=== PATIENT | male | born 1995 | race Caucasian/White ===

== ENCOUNTER 2017-10-01 13:19 | Emergency (ER) | payer SELFPAY ==
[~2017-10-01] VITALS: Ht 167.6 cm; Wt 66.0 kg
[2017-10-01] MEDS ORDERED: IBUPROFEN 600MG TABLET PO ONE (16:45)
[2017-10-01 16:50] VITALS: BP 169/95
== END 2017-10-01 17:28 | disposition home or self-care (01) ==
LOC: ER 13:57
DX: S70.01XA Contusion of right hip, initial encounter (principal); S60.041A Contusion of right ring finger without damage to nail, initial encounter; W01.0XXA Fall on same level from slipping, tripping and stumbling without subsequent striking against object, initial encounter; Y93.89 Activity, other specified; Y92.89 Other specified places as the place of occurrence of the external cause; F12.90 Cannabis use, unspecified, uncomplicated
CPT/HCPCS: 73140; 73502; 99284

== ENCOUNTER 2018-07-04 14:39 | Emergency (ER) | payer SELFPAY ==
[~2018-07-04] VITALS: Ht 172.7 cm; Wt 63.0 kg
[2018-07-04] MEDS ORDERED: LIDOCAINE HCL/PF 1% 10 MG/ML 5ML VIAL IJ ONE (16:15)
[2018-07-04] MEDS ORDERED: HYDROCODONE/ACETAMINOPHEN 5/325MG TABLET PO ONE (16:15)
[2018-07-04] MEDS ORDERED: BACITRACIN ZINC OINT UDPKT TOP ONE (16:15)
[2018-07-04] MEDS ORDERED: CEFAZOLIN SODIUM 1000MG/VIAL IM ONE (17:15)
[2018-07-04 18:32] VITALS: BP 137/82
== END 2018-07-04 18:34 | disposition home or self-care (01) ==
LOC: ER 14:39
DX: S81.812A Laceration without foreign body, left lower leg, initial encounter (principal); W01.198A Fall on same level from slipping, tripping and stumbling with subsequent striking against other object, initial encounter; Y93.89 Activity, other specified; Y92.89 Other specified places as the place of occurrence of the external cause
CPT/HCPCS: 12002; 73590; 96372; 99284; J0690; J3490

== ENCOUNTER 2019-06-09 11:25 | Emergency (ER) | payer OTHER | END 2019-06-09 11:41 | disposition left against medical advice (07) | LOC: ER 11:25 | DX: Z53.21 Procedure and treatment not carried out due to patient leaving prior to being seen by health care provider (principal) ==

== ENCOUNTER 2019-06-10 19:28 | Emergency (ER) | payer OTHER ==
[~2019-06-10] VITALS: Ht 170.2 cm; Wt 68.5 kg
[2019-06-10] MEDS ORDERED: BACITRACIN ZINC OINT UDPKT TOP ONE (21:15)
[2019-06-10] MEDS ORDERED: BACITRACIN 15GM TUBE TOP ONE (21:30)
[2019-06-10 21:51] VITALS: BP 128/77
== END 2019-06-10 21:53 | disposition home or self-care (01) ==
LOC: ER 19:28
DX: S61.212A Laceration without foreign body of right middle finger without damage to nail, initial encounter (principal); W26.8XXA Contact with other sharp object(s), not elsewhere classified, initial encounter; Y93.89 Activity, other specified; Y92.89 Other specified places as the place of occurrence of the external cause; Y99.8 Other external cause status; F17.200 Nicotine dependence, unspecified, uncomplicated
CPT/HCPCS: 99283

== ENCOUNTER 2019-12-04 09:27 | Inpatient (IN) | payer BC, OTHER ==
[~2019-12-04] VITALS: Ht 167.6 cm; Wt 63.5 kg
[2019-12-04 11:04] LABS: BASOPHILS % 0.2 % (0.0-2.0); EOSINOPHILS % 1.2 % (0.0-5.0); HEMATOCRIT. 42.4 % (42.0-52.0); HEMOGLOBIN. 15.1 g/dL (14.0-18.0); LYMPHOCYTES % 11.1 % (20.0-50.0); MEAN CORPUSCULAR HEMOGLOBIN 31.5 pg (28.0-32.0); MEAN CORPUSCULAR VOLUME 88.3 fL (80.0-94.0); MONOCYTES % 8.4 % (2.0-8.0); NEUTROPHILS % 79.1 % (40.0-76.0); PLATELET 239 x1000/uL (130-400); RED CELL DISTRIBUTION WIDTH 12.5 % (11.6-14.6)
[2019-12-04 11:10] LABS: CHLORIDE 106 mEq/L (98-107)
[2019-12-04 11:18] LABS: T4 FREE 4.25 ng/dL (0.76-1.46)
[2019-12-04] MEDS ORDERED: SODIUM CHLORIDE 0.9% 1,000 ML IV ONE (12:59)
[2019-12-04] MEDS ORDERED: METOPROLOL TARTRATE 25MG TABLET PO ONE (13:45)
[2019-12-04] MEDS ORDERED: METOPROLOL TARTRATE 5MG/5ML VIAL IV ONE (13:45)
[2019-12-04] MEDS: METHIMAZOLE 5MG TABLET PO SCH (14:44)
[2019-12-04 23:00] VITALS: BP 121/71
[2019-12-04] MEDS ORDERED: ACETAMINOPHEN 325MG TABLET PO PRN (23:00)
[2019-12-04] MEDS ORDERED: HYDROCODONE/ACETAMINOPHEN 5/325MG TABLET PO PRN (23:00)
[2019-12-05] VITALS: BP 130/70
[2019-12-05 04:00] VITALS: BP 109/53
[2019-12-05] MEDS: PANTOPRAZOLE 40MG DR TABLET PO SCH ×2 (05:52→08:12)
[2019-12-05] MEDS: METHIMAZOLE 5MG TABLET PO SCH (08:12)
[2019-12-05] MEDS ORDERED: METOPROLOL TARTRATE 50MG TABLET PO SCH (09:00)
[2019-12-05] MEDS ORDERED: ENOXAPARIN 40MG/0.4ML SYR SUBCUT SCH (09:00)
[2019-12-05 12:00] VITALS: BP 122/60
[2019-12-05 16:18] LABS: INR 1.1; PROTHROMBIN TIME 11.5 sec (9.6-11.0)
[2019-12-05 18:51] VITALS: BP 118/52
[2019-12-05 18:58] LABS: CLARITY URINE CLEAR (CLEAR); COLOR URINE YELLOW (YELLOW); KETONES URINE 3+ (NEGATIVE); LEUKOCYTE ESTERASE URINE NEGATIVE (NEGATIVE); NITRITE URINE NEGATIVE (NEGATIVE); OCCULT BLOOD URINE NEGATIVE (NEGATIVE); PROTEIN URINE NEGATIVE (NEGATIVE); SPECIFIC GRAVITY URINE 1.019 (1.005-1.030); UROBILINOGEN URINE 0.2 E.U./dL (0.2-1.0)
[2019-12-05 19:15] LABS: *AMPHETAMINES SCREEN URINE NEGATIVE (NEGATIVE); *BARBITURATES SCREEN URINE NEGATIVE (NEGATIVE)
[2019-12-05 19:16] LABS: *BENZODIAZEPINES SCREEN URINE NEGATIVE (NEGATIVE); *COCAINE SCREEN URINE NEGATIVE (NEGATIVE); CANNABINOID URINE SCREEN PRESUMTIVE POSITIVE (NEGATIVE); METHADONE URINE SCREEN NEGATIVE (NEGATIVE); OPIATES URINE SCREEN PRESUMTIVE POSITIVE (NEGATIVE); PHENCYCLIDINE URINE SCREEN NEGATIVE (NEGATIVE)
== END 2019-12-05 19:30 | disposition home or self-care (01) | DRG 392 ==
LOC: ER 09:27 → EDBEDREQ 16:49 → 5WST 18:49 → ENRESERV 21:07 → CANRESERV 21:07 → ENRESERV 21:47
PROVIDERS: ADMIT Internal Medicine; ATTEND Internal Medicine
DX: R10.9 Unspecified abdominal pain (principal); R11.2 Nausea with vomiting, unspecified; R00.2 Palpitations; E06.9 Thyroiditis, unspecified; F12.90 Cannabis use, unspecified, uncomplicated; K76.0 Fatty (change of) liver, not elsewhere classified; R91.1 Solitary pulmonary nodule; E04.2 Nontoxic multinodular goiter; F41.9 Anxiety disorder, unspecified; E32.8 Other diseases of thymus
CPT/HCPCS: 36415; 71275; 76536; 76700; 80053; 80305; 81003; 84439; 84443; 84481; 85025; 99291; J1650; J3490; J7030

== ENCOUNTER 2021-06-20 11:32 | Emergency (ER) | payer MEDICAID ==
[~2021-06-20] VITALS: Ht 165.1 cm; Wt 75.0 kg
[2021-06-20 11:51] VITALS: BP 162/106
[2021-06-20] MEDS ORDERED: ALPRAZOLAM 0.5 MG TABLET PO ONE (12:30)
== END 2021-06-20 13:16 | disposition left against medical advice (07) ==
LOC: ER 11:32
DX: F41.0 Panic disorder [episodic paroxysmal anxiety] (principal); R00.0 Tachycardia, unspecified; R03.0 Elevated blood-pressure reading, without diagnosis of hypertension; F43.0 Acute stress reaction; Z56.3 Stressful work schedule
CPT/HCPCS: 99281

== ENCOUNTER 2021-08-09 22:56 | Emergency (ER) | payer MEDICAID ==
[~2021-08-09] VITALS: Ht 170.2 cm; Wt 62.0 kg
[2021-08-10 00:18] LABS: BASOPHILS % 0.5 % (0.0-2.0); EOSINOPHILS % 0.6 % (0.0-5.0); HEMATOCRIT. 43.7 % (42.0-52.0); HEMOGLOBIN. 15.1 g/dL (14.0-18.0); LYMPHOCYTES % 67.1 % (20.0-50.0); MEAN CORPUSCULAR HEMOGLOBIN 29.6 pg (28.0-32.0); MEAN CORPUSCULAR VOLUME 85.6 fL (80.0-94.0); MEAN PLATELET VOLUME 9.1 fl (7.4-10.4); MONOCYTES % 12.4 % (2.0-8.0); NEUTROPHILS % 19.4 % (40.0-76.0); PLATELET 152 x1000/uL (130-400); RED BLOOD CELL COUNT 5.11 mill/uL (4.7-6.1); RED CELL DISTRIBUTION WIDTH 12.7 % (11.6-14.6)
[2021-08-10 00:25] LABS: CHLORIDE 107 mEq/L (98-107)
[2021-08-10 01:06] LABS: CLARITY URINE CLEAR (CLEAR); COLOR URINE YELLOW (YELLOW); KETONES URINE NEGATIVE (NEGATIVE); LEUKOCYTE ESTERASE URINE NEGATIVE (NEGATIVE); NITRITE URINE NEGATIVE (NEGATIVE); OCCULT BLOOD URINE NEGATIVE (NEGATIVE); PH URINE 6.5 (4.5-8.0); PROTEIN URINE NEGATIVE (NEGATIVE); SPECIFIC GRAVITY URINE 1.004 (1.005-1.030); UROBILINOGEN URINE 0.2 E.U./dL (0.2-1.0)
[2021-08-10 01:18] LABS: METHADONE URINE SCREEN NEGATIVE (NEGATIVE)
[2021-08-10 01:19] LABS: *AMPHETAMINES SCREEN URINE NEGATIVE (NEGATIVE); *BARBITURATES SCREEN URINE NEGATIVE (NEGATIVE); *BENZODIAZEPINES SCREEN URINE NEGATIVE (NEGATIVE); *COCAINE SCREEN URINE NEGATIVE (NEGATIVE); CANNABINOID URINE SCREEN NEGATIVE (NEGATIVE); OPIATES URINE SCREEN NEGATIVE (NEGATIVE); PHENCYCLIDINE URINE SCREEN NEGATIVE (NEGATIVE)
[2021-08-10 02:00] VITALS: BP 110/71
== END 2021-08-10 02:10 | disposition home or self-care (01) ==
LOC: ER 23:22
DX: R07.89 Other chest pain (principal); I10 Essential (primary) hypertension
CPT/HCPCS: 36415; 71045; 80053; 80305; 81003; 83880; 85025; 93005; 99285

== ENCOUNTER 2022-01-20 00:59 | Emergency (ER) | payer MEDICAID ==
[~2022-01-20] VITALS: Ht 170.2 cm; Wt 71.5 kg
[2022-01-20 01:25] VITALS: BP 110/68
[2022-01-20] MEDS ORDERED: FLUORESCEIN SODIUM 1MG/STRIP BOTHEYE ONE (01:45)
[2022-01-20] MEDS ORDERED: TETRACAINE 0.5% OPHTH DROPS 4ML BOTHEYE ONE (01:45)
[2022-01-20] MEDS ORDERED: OFLO5DRO3 RIGHTEYE (03:13)
== END 2022-01-20 03:25 | disposition home or self-care (01) ==
LOC: ER 00:59
DX: T15.91XA Foreign body on external eye, part unspecified, right eye, initial encounter (principal); X58.XXXA Exposure to other specified factors, initial encounter; Y93.89 Activity, other specified; Y92.89 Other specified places as the place of occurrence of the external cause; Y99.8 Other external cause status
CPT/HCPCS: 99283

== ENCOUNTER 2024-05-10 14:14 | Emergency (ER) | payer BC, MEDICAID ==
[~2024-05-10] VITALS: Ht 177.8 cm; Wt 82.0 kg
[~2024-05-10 14:14] MED LIST: OCUFLX RIGHTEYE
[2024-05-10 14:19] VITALS: BP 117/52; PULSE 108; RESP 14; TEMP 97.9; O2SAT 93
[2024-05-10 15:34] LABS: BASOPHILS % 0.7 % (0.0-2.0); EOSINOPHILS % 2.3 % (0.0-5.0); HEMATOCRIT. 43.8 % (42.0-52.0); HEMOGLOBIN. 14.3 g/dL (14.0-18.0); MEAN CORPUSCULAR HEMOGLOBIN 30.7 pg (28.0-32.0); MEAN CORPUSCULAR HGB CONC 32.7 g/dL (31.0-37.0); MEAN CORPUSCULAR VOLUME 93.9 fL (80.0-94.0); MEAN PLATELET VOLUME 8.6 fl (7.4-10.4); MONOCYTES % 6.6 % (2.0-8.0); NEUTROPHILS % 52.4 % (40.0-76.0); PLATELET 180 x1000/uL (130-400); RED BLOOD CELL COUNT 4.67 mill/uL (4.7-6.1); RED CELL DISTRIBUTION WIDTH 13.2 % (11.6-14.6); WHITE BLOOD COUNT 4.8 x1000/uL (4.5-11.0)
[2024-05-10 15:47] LABS: CARBON DIOXIDE 25 mEq/L (21-32); CHLORIDE 113 mEq/L (98-107); SODIUM 145 mEq/L (136-145)
[2024-05-10 15:48] LABS: CALCIUM 8.8 mg/dL (8.7-10.4)
[2024-05-10 15:52] LABS: CREATININE 0.9 mg/dL (0.6-1.3)
[2024-05-10 15:53] LABS: GLUCOSE 94 mg/dL (70-105); UREA NITROGEN BLOOD 7 mg/dL (9-23)
[2024-05-10 15:55] LABS: ALANINE AMINOTRANSFERASE 21 IU/L (10-49); ALBUMIN 5.1 g/dL (3.2-4.8); ASPARTATE AMINOTRANSFERASE 29 IU/L (<34); BILIRUBIN TOTAL 0.3 mg/dL (0.1-1.0); PROTEIN TOTAL 7.9 g/dL (6.0-8.3)
[2024-05-10 16:21] LABS: ETHANOL BLOOD 419 mg/dL (<10)
== END 2024-05-10 20:19 | disposition home or self-care (01) ==
LOC: ER 14:14
DX: F10.129 Alcohol abuse with intoxication, unspecified (principal); R51.9 Headache, unspecified; I10 Essential (primary) hypertension; Z86.39 Personal history of other endocrine, nutritional and metabolic disease; Y90.8 Blood alcohol level of 240 mg/100 ml or more
CPT/HCPCS: 36415; 80053; 80320; 85025; 99284; G0480